=== PATIENT | male | born 1965 ===

== ENCOUNTER 2022-05-05 08:35 | Day surgery (SDC) | payer BC ==
[~2022-05-05] VITALS: Ht 177.8 cm; Wt 89.6 kg
[2022-05-05] MEDS ORDERED: PRAVACHOL80 MG PO (09:52)
[2022-05-05] MEDS ORDERED: GLUCOPHAGE1000 MG PO (09:52)
[2022-05-05] MEDS ORDERED: DESYREL 50MG50 MG PO (09:53)
[2022-05-05] MEDS ORDERED: ACTOS 45MG45 MG/TAB PO (09:53)
[2022-05-05] MEDS ORDERED: PRINIVIL5 MG PO (09:53)
[2022-05-05] MEDS ORDERED: TYLENOL 325MG325 MG PO (09:54)
[2022-05-05] MEDS ORDERED: VOLTAREN 75 DR75 MG PO (09:54)
[2022-05-05] MEDS ORDERED: NATURAL IRON65 MG (09:55)
[2022-05-05 09:59] VITALS: BP 127/82; PULSE 70; TEMP 97.7
[2022-05-05 10:25] VITALS: BP 117/74; PULSE 70; TEMP 96.9
[2022-05-05 10:40] VITALS: BP 106/65; PULSE 74
--- NOTE | 2022-05-05 10:47 | NUR ---
1025 - PT arrives from procedure and was settled by Shelly BARNES. Verbal room report then obtained. VSS. PT denies pain/nausea; snack and drink provided per request. Call boone remains within reach and non-slip socks are on. 1040 - VSS. PT has finished snack and drink; continues to deny pain/nausea. Expressed desire to be discharged; PT states he will contact ride. Call boone remains within reach if needed.
[2022-05-05 10:55] VITALS: BP 123/63; PULSE 73
--- NOTE | 2022-05-05 11:10 | NUR ---
1055 - Vitals obtained. IV discontinued. Catheter tip intact and pressure bandage applied; no redness or swelling noted. DC instructions and educational material reviewed w/ PT who verbalized understanding and signed the related paperwork. Questions answered to PT satisfaction. PT refused RN assistance changing into personal clothes; call boone remains within reach if needed.
--- NOTE | 2022-05-05 11:22 | NUR ---
1115 - PT dismissed from endo via wheelchair to the PT entrence by Jaimee BARNES. PT has DC packet and personal belongings, PT was transferred into the care of his friend, who is driving private car.
== END 2022-05-05 11:20 | disposition home or self-care (01) ==
LOC: SDCO 08:35
DX: Z12.11 Encounter for screening for malignant neoplasm of colon (principal); K64.0 First degree hemorrhoids; K57.30 Diverticulosis of large intestine without perforation or abscess without bleeding
CPT/HCPCS: J2704